=== PATIENT | male | born 1950 | race Caucasian/White ===

== ENCOUNTER 2018-01-12 08:15 | Emergency (ER) | payer MEDICARE, SELFPAY ==
[2018-01-12 08:16] VITALS: BP 153/82; PULSE 78; RESP 18; TEMP 36.7; O2SAT 99; BMI 31.0
--- NOTE | 2018-01-12 08:19 | ED.DCSUM_ITS ---
- ER Visit Summary Date of Service: 01/12/18 Chief Complaint: PEG tube complication History of Present Illness: The patient is a 67 M who is at [facility] recovering from a stroke. He states he had a PEG tube placed approximately 10 months ago. This came out during the night. Staff from [facility] placed a 18 Cymro Marie catheter into the stoma. He was sent here for replacement. During report it was not known what size PEG tube the patient has. Physical Examination: Afebrile vital signs are stable Gen: Well-nourished well-developed Head: Normocephalic atraumatic Eyes: Perrl EOMI ENT: TMs clear no rhinorrhea moist mucous membranes Neck: Supple no lymphadenopathy no JVD nontender CVS: Regular rate rhythm no murmurs normal S1-S2 Respiratory: No distress clear to auscultation bilaterally chest nontender Abdomen: Soft nontender nondistended normal bowel sounds no masses stoma is intact and free of complications. There is an [address] Cym[address] catheter in place. Back: Nontender Extremity: Nontender no edema Skin: Normal color no rash Neuro: alert orientated ?3 functional quadriplegia Psych: Normal affect normal mood Test Results: Gastrografin injection does not show any extravasation outside the gastrum. Emergency Department Course and Treatment: A 20 Cymro PEG tube was replaced after removing the Marie catheter. It was inflated with 6 mL's of sterile water. Patient tolerated procedure extremely well. Postprocedure imaging is adequate. He will be transferred back to senior care. Drain dressing was applied. PEG tube was secured with paper tape. Impression: 1. PEG tube replacement This note was generated with [employer] dictation software. It may contain incorrect words, spelling, and punctuation that were not noted in review of the chart prior to signing ED Disposition - Plan for ED Patient: Disposition: Home or Assisted Living Chief Complaint: Other, Pain/Inj Instructions: ED G Tube Replacement
--- NOTE | 2018-01-12 09:15 | RAD_ITS ---
STUDY: X-RAY - ABDOMEN/PELVIS REASON FOR EXAM: Male, 67 years old. PEG tube evaluation. TECHNIQUE: 60 cc of Gastrografin was injected into the PEG tube. COMPARISON: None. FINDINGS: The PEG tube is seen within the stomach. RAD/Abdomen Single View IMPRESSION: The PEG tube is seen within the stomach. Electronically Signed: Ajit Cruz MD at 10:19 EDT Tel [phone], Service support ,
== END 2018-01-12 09:53 | disposition home or self-care (01) ==
PROVIDERS: Emergency Provider Emergency Medicine
DX: Z43.1 Encounter for attention to gastrostomy (principal); E66.9 Obesity, unspecified; Z86.73 Personal history of transient ischemic attack (TIA), and cerebral infarction without residual deficits; Z87.891 Personal history of nicotine dependence; Z68.31 Body mass index [BMI] 31.0-31.9, adult; Z79.82 Long term (current) use of aspirin; Z79.899 Other long term (current) drug therapy
CPT/HCPCS: 43760; 74018; 99284

== ENCOUNTER 2018-07-27 07:43 | Emergency (ER) | payer MEDICARE, SELFPAY ==
[2018-07-27 07:44] VITALS: BP 131/53; PULSE 72; RESP 16; TEMP 36.4; O2SAT 99; BMI 30.4
--- NOTE | 2018-07-27 08:15 | ED.VISSUMM ---
- ER Visit Summary Date of Service: 07/27/18 Chief Complaint: [] Needs PEG tube replaced History of Present Illness: The patient is a 67 M [] usual state of stable health apparently the PEG tube fell out last night the nurses put in a Marie catheter immediately and he was sent in to have a new PEG tube put in place of the Marie catheter temporary, the patient has no complaints and per information staff obtained from [facility] [place] there is no other issues with the patient he has been doing well at [facility] in his stable state of health Physical Examination: [] He is resting comfortably in the bed he has a cough that is not unusual for him he denies any fever cough chest pain shortness of breath anything that is different he simply indicates needs his PEG tube replaced his blood pressure is 171/62, his lungs are rhonchorous his heart tones are regular the abdomen soft Marie catheter 18-gauge is in place and PEG tube site the abdomen soft and nontender upper lower extremity unremarkable he is moving his upper extremities has weakness to lower extremities that he states is not new for him, and again the [facility] staff informed our staff that he has been in his stable state of health We are contacting the [facility] to obtain information related to the PEG tube Confirmed the above with nursing center per staff, a 20 Iranian ASHER tube was placed without difficulty using standard sterile technique, the post insertion KUB with contrast per radiology shows the tube to be in appropriate position no extravasation all the above was discussed with from our staff via [facility] staff and to management and he will be returned to [facility] [place] continue his therapy Test Results: [] Emergency Department Course and Treatment: [] Treatment Plan: [] Disposition: [] Home stable Impression: [] PEG tube replacement This note was generated with [employer] dictation software. It may contain incorrect words, spelling, and punctuation that were not noted in review of the chart prior to signing ED Disposition - Plan for ED Patient: Chief Complaint: General Illness Referrals: Care Physician,No Primary [Primary Care Provider] -
--- NOTE | 2018-07-27 08:21 | ED.DCSUM_ITS ---
- ER Visit Summary Date of Service: 07/27/18 Chief Complaint: [] Needs PEG tube replaced History of Present Illness: The patient is a 67 M [] usual state of stable health apparently the PEG tube fell out last night the nurses put in a Marie catheter immediately and he was sent in to have a new PEG tube put in place of the Marie catheter temporary, the patient has no complaints and per information staff obtained from nursing [place] there is no other issues with the patient he has been doing well at [facility] in his stable state of health Physical Examination: [] He is resting comfortably in the bed he has a cough that is not unusual for him he denies any fever cough chest pain shortness of breath anything that is different he simply indicates needs his PEG tube replaced his blood pressure is 171/62, his lungs are rhonchorous his heart tones are regular the abdomen soft Marie catheter 18-gauge is in place and PEG tube site the abdomen soft and nontender upper lower extremity unremarkable he is moving his upper extremities has weakness to lower extremities that he states is not new for him, and again the care home staff informed our staff that he has been in his stable state of health We are contacting the care home to obtain information related to the PEG tube Confirmed the above with nursing center per staff, a 20 Vincentian ASHER tube was placed without difficulty using standard sterile technique, the post insertion KUB with contrast per radiology shows the tube to be in appropriate position no extravasation all the above was discussed with from our staff via care home staff and to management and he will be returned to [facility] [place] continue his t herapy Test Results: [] Emergency Department Course and Treatment: [] Treatment Plan: [] Disposition: [] Home stable Impression: [] PEG tube replacement This note was generated with [employer] dictation software. It may contain incorrect words, spelling, and punctuation that were not noted in review of the chart prior to signing ED Disposition - Plan for ED Patient: Chief Complaint: General Illness Referrals: Care Physician,No Primary [Primary Care Provider] -
[2018-07-27 09:01] VITALS: BP 121/66; PULSE 75; RESP 16; O2SAT 99
--- NOTE | 2018-07-27 09:11 | RAD_ITS ---
STUDY: X-RAY - ABDOMEN/PELVIS REASON FOR EXAM: Male, 67 years old. PEG tube placement. TECHNIQUE: Single AP view of the abdomen / pelvis. COMPARISON: Comparison is made with prior study dated January 12, 2018. FINDINGS: 60 cc of nonionic contrast was injected into the indwelling PEG tube. The tip of the PEG tube is in the region of the first portion of the duodenum. RAD/Abdomen Single View (Portable) IMPRESSION: The tip of the PEG tube is in the region of the first portion of the duodenum. Electronically Signed: Ajit Cruz MD at 9:27 EST Tel [phone], Service support ,
[2018-07-27 09:19] VITALS: BP 146/77; PULSE 79; RESP 16; O2SAT 98
--- NOTE | 2018-07-27 09:45 | ED.DEP ---
ED Disposition - Plan for ED Patient: Chief Complaint: General Illness Instructions: ED G Tube Replacement Referrals: Care Physician,No Primary [Primary Care Provider] -
--- NOTE | 2018-07-27 10:14 | ED.RN ---
20FR G-TUBE INSERTED BY DR FLOERS. DRESSING APPLIED. PLACEMENT VERIFIED.
--- OUTSIDE RECORDS SUMMARY | 2018-09-19 07:40 | XMS RPT_ITS ---
:1950 Author Organization [place] Care Team Providers Name Role Phone Cristobal Lee Attending Unavailable Primay Care Physicia, No Primary Care Unavailable Baron, Manuel Attending Unavailable Primay Care Physicia, No Primary Care Unavailable Tyrone Copeland Attending Unavailable Manuel Draper Attending Unavailable Primay Care Physicia, No Primary Care Unavailable Navin Carson Attending Unavailable Primay Care Physicia, No Primary Care Unavailable Nacho Thompson Attending Unavailable PROBLEMS PROBLEMS DATE TYPE CONDITION / CODE ATTENDING STATUS SOURCE 10/06/2017 Unknown Z43.1 - Encounter RosaCristobal Active [place] for attention to [facility] gastrostomy / Hospital Z43.1(ICD-10) Repository PROCEDURES PROCEDURES No Procedure Records FoundRESULTS RESULTS EMERGENCY DEPARTMENT Observed: 07/27/2018 Status: F Source: [place] SUMMARY 10:25 PM [facility] REPOSITORY [facility] Medical Records Department [address] [place] [address] Emergency Department Summary 07/27/182221 MR#: [id number] Acct: [id number] Name: YUMIKO LOPEZ Rep #: [id number] : 1950 67 From: Nacho Thompson MD PCP: Olamide Coughlin, No Primary Status: REG ER - ER Visit Summary Date of Service: 07/27/18 Chief Complaint: Concern for proper placement of feeding tube History of Present Illness: The patient is a 67 M sent to ER from jail facility because of concern for proper placement of feeding tube. Patient has no complaints. Physical Examination: Vital signs noted and blood pressure is elevated 143/74. Abdomen is soft nontender. G-tube appears to be in proper position. Bowel sounds are present normal. There is no erythema drainage around fistula site. Test Results: None Emergency Department Course and Treatment: 60 cc of normal saline was instilled into the stomach through the G-tube. 50 cc was easily aspirated. Treatment Plan: Return to jail facility and resume prior orders Disposition: Discharge to jail facility Impression: Verify placement of G-tube put This note was generated with Carnet de Mode dictation software. It may contain incorrect words, spelling, and punctuation that were not noted in review of the chart prior to signing ED Disposition - Plan for ED Patient: Disposition: Home or Assisted Living Chief Complaint: Wound Instructions: Gastrostomy Feeding Tube Care: [place] Referrals: Care Physician,No Primary [Primary Care Provider] - What to do if you have Problems For any increased pain, shortness of breath, bleeding, nausea or vomiting, chest pain, or any unexpected problems, contact your Primary Care Provider. Call [facility] Registry ([phone]) or report to the closest Emergency Room. Call 911 if necessary. 07/27/182224 <Electronically signed by Nacho Thompson MD> Date Nacho Thompson MD Cosigner Signature (If Indicated): Date CC: No Primary Care Physician EMERGENCY DEPARTMENT Observed: 07/27/2018 Status: F Source: [place] SUMMARY 4:21 PM [facility] REPOSITORY [facility] Medical Records Department [address] [place] [address] Emergency Department Summary 07/27/18 0815 MR#: [id number] Acct: [id number] Name: YUMIKO LOPEZ Rep #: [id number] : 1950 67 From: Navin Carson MD PCP: Care Physician, No Primary Status: DEP ER - ER Visit Summary Date of Service: 07/27/18 Chief Complaint: [] Needs PEG tube replaced History of Present Illness: The patient is a 67 M [] usual state of stable health apparently the PEG tube fell out last night the nurses put in a Marie catheter immediately and he was sent in to have a new PEG tube put in place of the Marie catheter temporary, the patient has no complaints and per information staff obtained from nursing center there is no other issues with the patient he has been doing well at nursing center in his stable state of health Physical Examination: [] He is resting comfortably in the bed he has a cough that is not unusual for him he denies any fever cough chest pain shortness of breath anything that is different he simply indicates needs his PEG tube replaced his blood pressure is 171/62, his lungs are rhonchorous his heart tones are regular the abdomen soft Marie catheter 18-gauge is in place and PEG tube site the abdomen soft and nontender upper lower extremity unremarkable he is moving his upper extremities has weakness to lower extremities that he states is not new for him, and again the halfway staff informed our staff that he has been in his stable state of health We are contacting the halfway to obtain information related to the PEG tube Confirmed the above with nursing center per staff, a 20 Bhutanese ASHER tube was placed without difficulty using standard sterile technique, the post insertion KUB with contrast per radiology shows the tube to be in appropriate position no extravasation all the above was discussed with from our staff via halfway staff and to management and he will be returned to nursing center continue his therapy Test Results: [] Emergency Department Course and Treatment: [] Treatment Plan: [] Disposition: [] Home stable Impression: [] PEG tube replacement This note was generated with Eurekaation software. It may contain incorrect words, spelling, and punctuation that were not noted in review of the chart prior to signing ED Disposition - Plan for ED Patient: Chief Complaint: General Illness Referrals: Care Physician,No Primary [Primary Care Provider] - What to do if you have Problems For any increased pain, shortness of breath, bleeding, nausea or vomiting, chest pain, or any unexpected problems, contact your Primary Care Provider. Call [facility] Registry ([phone]) or report to the closest Emergency Room. Call 911 if necessary. 07/27/18 1621 <Electronically signed by Navin Carson MD> Date Navin Carson MD Cosigner Signature (If Indicated): Date CC: No Primary Care Physician DISCHARGE INSTRUCTION Observed: 07/27/2018 Status: F Source: [place] 9:46 AM [facility] REPOSITORY [facility] Medical Records Department [address] [place] [address] Discharge Instruction 07/27/18 0945 MR#: [id number] Acct: [id number] Name: YUMIKO LOPEZ Rep #: [id number] : 1950 67 From: Navin Carson MD PCP: Care Physician, No Primary Status: REG ER ED Disposition - Plan for ED Patient: Chief Complaint: General Illness Instructions: ED G Tube Replacement Referrals: Care Physician,No Primary [Primary Care Provider] - What to do if you have Problems For any increased pain, shortness of breath, bleeding, nausea or vomiting, chest pain, or any unexpected problems, contact your Primary Care Provider. Call [facility] ([phone]) or report to the closest Emergency Room. Call 911 if necessary. 07/27/18 0946 <Electronically signed by Navin Carson MD> Date Navin Carson MD Cosigner Signature (If Indicated): Date CC: No Primary Care Physician ABDOMEN SINGLE VIEW Observed: 07/27/2018 Status: F Source: [place] (PORTABLE) 8:55 AM [facility] REPOSITORY [facility] Imaging Services [address] [place] [address] Abdomen Single View (Portable) MR#: [id number] Acct: [id number] Name: YUMIKO LOPEZ Rep #: [id number] : 1950 67 From: Ajit Cruz MD PCP: [place]ma[place] Physician, No Primary Status: REG ER Study: Abdomen Single View (Portable) Date of Exam: 07/27/18 Exam# [id number] Ordering Dr: aNvin Carson MD STUDY: X-RAY - ABDOMEN/PELVIS REASON FOR EXAM: Male, 67 years old. PEG tube placement. TECHNIQUE: Single AP view of the abdomen / pelvis. COMPARISON: Comparison is made with prior study dated January 12, 2018. FINDINGS: 60 cc of nonionic contrast was injected into the indwelling PEG tube. The tip of the PEG tube is in the region of the first portion of the duodenum. RAD/Abdomen Single View (Portable) IMPRESSION: The tip of the PEG tube is in the region of the first portion of the duodenum. Electronically Signed: Ajit Cruz MD at 9:27 EST Tel [phone], Service support , CC: MD Cristiana Carson; No Primary Care Physician Scout Leaser: Signed AMMONIA Collected: 02/24/2018 Status: F Source: [place] 3:28 AM [facility] REPOSITORY TYPE CODE TESTS RESULT OUT OF REFERENCE UNITS RANGE LAB L503.5510 11-32 umol/L High AMMONIA 49.0 Performed By: #### L503.5510 #### [facility] [address] [facility] [place], [address] EMERGENCY DEPARTMENT Observed: 01/14/2018 Status: F Source: [place] SUMMARY 8:27 AM [facility] REPOSITORY [facility] Medical Records Department [address] [place] [address] Emergency Department Summary 01/12/18 0817 MR#: [id number] Acct: [id number] Name: YUMIKO LOPEZ Rep #: [id number] : 1950 67 From: Tyrone Copeland DO PCP: Care Physician, No Primary Status: DEP ER - ER Visit Summary Date of Service: 01/12/18 Chief Complaint: PEG tube complication History of Present Illness: The patient is a 67 M who is at [facility] recovering from a stroke. He states he had a PEG tube placed approximately 10 months ago. This came out during the night. Staff from [facility] placed a 18 Bhutanese Marie catheter into the stoma. He was sent here for replacement. During report it was not known what size PEG tube the patient has. Physical Examination: Afebrile vital signs are stable Gen: Well-nourished well-developed Head: Normocephalic atraumatic Eyes: Perrl EOMI ENT: TMs clear no rhinorrhea moist mucous membranes Neck: Supple no lymphadenopathy no JVD nontender CVS: Regular rate rhythm no murmurs normal S1-S2 Respiratory: No distress clear to auscultation bilaterally chest nontender Abdomen: Soft nontender nondistended normal bowel sounds no masses stoma is intact and free of complications. There is an 18 Bhut[place] Marie catheter in place. Back: Nontender Extremity: Nontender no edema Skin: Normal color no rash Neuro: alert orientated 3 functional quadriplegia Psych: Normal affect normal mood Test Results: Gastrografin injection does not show any extravasation outside the gastrum. Emergency Department Course and Treatment: A 20 Bhutanese PEG tube was replaced after removing the Marie catheter. It was inflated with 6 mL's of sterile water. Patient tolerated procedure extremely well. Postprocedure imaging is adequate. He will be transferred back to halfway. Drain dressing was applied. PEG tube was secured with paper tape. Impression: 1. PEG tube replacement This note was generated with Carnet de Mode dictation software. It may contain incorrect words, spelling, and punctuation that were not noted in review of the chart prior to signing ED Disposition - Plan for ED Patient: Disposition: Home or Assisted Living Chief Complaint: Other, Pain/Inj Instructions: ED G Tube Replacement What to do if you have Problems For any increased pain, shortness of breath, bleeding, nausea or vomiting, chest pain, or any unexpected problems, contact your Primary Care Provider. Call [facility] Registry ([phone]) or report to the closest Emergency Room. Call 911 if necessary. 01/14/18 0858 <Electronically signed by Tyrone Copeland DO> Date Tyrone Copeland DO Cosigner Signature (If Indicated): Date CC: No Primary Care Physician ABDOMEN SINGLE VIEW Observed: 01/12/2018 Status: F Source: [place] 8:17 AM [facility] REPOSITORY [facility] Imaging Services [address] [place] [address] Abdomen Single View MR#: [id number] Acct: [id number] Name: YUMIKO LOPEZ Rep #: [id number] : 1950 M 67 From: Ajit Cruz MD PCP: Care Physician, No Primary Status: DEP ER Study: Abdomen Single View Date of Exam: 01/12/18 Exam# [id number] Ordering Dr: Tyrone Copeland DO STUDY: X-RAY - ABDOMEN/PELVIS REASON FOR EXAM: Male, 67 years old. PEG tube evaluation. TECHNIQUE: 60 cc of Gastrografin was injected into the PEG tube. COMPARISON: None. FINDINGS: The PEG tube is seen within the stomach. RAD/Abdomen Single View IMPRESSION: The PEG tube is seen within the stomach. Electronically Signed: Ajit Cruz MD at 10:19 EDT Tel [phone], Service support , CC: No Primary Care Physician; Tyrone Copeland DO Scout Leaser: Signed AMMONIA Collected: 08/26/2017 Status: F Source: [place] 3:12 AM [facility] REPOSITORY TYPE CODE TESTS RESULT OUT OF REFERENCE UNITS RANGE LAB L503.5510 11-32 umol/L High AMMONIA 52.0 Performed By: #### L503.5510 #### [facility] [address] [place], [address] EMERGENCY DEPARTMENT Observed: 08/25/2017 Status: F Source: [place] SUMMARY 7:28 AM [facility] REPOSITORY [facility] Medical Records Department [address] [place] [address] Emergency Department Summary 08/25/1716 MR#: [id number] Acct: [id number] Name: YUMIKO LOPEZ Rep #: [id number] : 1950 66 From: Cristobal Lee MD PCP: Care Physician, No Primary Status: REG ER - ER Visit Summary Date of Service: 08/25/17 Chief Complaint: Pulled PEG tube History of Present Illness: The patient is a 66 M with a history of dementia peripheral vascular disease stroke alcoholic liver cirrhosis whose PEG tube was pulled out. This occurred about 3 hours prior to presentation here to the emergency department. Staff at his facility did place a Marie catheter. Patient states the PEG was established about 2 months ago. He otherwise has no complaints. Physical Examination: Afebrile vitals are stable Heart regular rate and rhythm Lungs are clear Abdomen soft nontender, Marie catheter noted at site of gastrostomy Alert Test Results: KUB shows contrast within the stomach without extravasation on my review. Emergency Department Course and Treatment: Marie was removed and a new PEG tube was easily placed without apparent complication. Gastric contents draining from the tube. Tube placement confirmed with Gastrografin KUB. Patient discharged. Treatment Plan: [] Disposition: Discharge Impression: PEG tube replacement This note was generated with Carnet de Mode dictation software. It may contain incorrect words, spelling, and punctuation that were not noted in review of the chart prior to signing ED Disposition - Plan for ED Patient: Chief Complaint: Other, Pain/Inj Instructions: ED G Tube Replacement Referrals: Care Physician,No Primary [Primary Care Provider] - What to do if you have Problems For any increased pain, shortness of breath, bleeding, nausea or vomiting, chest pain, or any unexpected problems, contact your Primary Care Provider. Call [facility] ([phone]) or report to the closest Emergency Room. Call 911 if necessary. 08/25/1728 <Electronically signed by Cristobal Lee MD> Date Cristobal Lee MD Cosigner Signature (If Indicated): Date CC: No Primary Care Physician DISCHARGE INSTRUCTION Observed: 08/25/2017 Status: F Source: [place] 7:[address] [facility] Medical Records Department [address] [place] [address] Discharge Instruction 08/25/17717 MR#: [id number] Acct: [id number] Name: YUMIKO LOPEZ Rep #: [id number] : 1950 66 From: Cristobal Lee MD PCP: Care Physician, No Primary Status: REG ER ED Disposition - Plan for ED Patient: Chief Complaint: Other, Pain/Inj Instructions: ED G Tube Replacement Referrals: Care Physician,No Primary [Primary Care Provider] - What to do if you have Problems For any increased pain, shortness of breath, bleeding, nausea or vomiting, chest pain, or any unexpected problems, contact your Primary Care Provider. Call [facility] ([phone]) or report to the closest Emergency Room. Call 911 if necessary. 08/25/17718 <Electronically signed by Cristobal Lee MD> Date Cristobal Lee MD Cosigner Signature (If Indicated): Date CC: No Primary Care Physician ABDOMEN SINGLE VIEW Observed: 08/25/2017 Status: F Source: [place] 7:[address] [facility] Imaging Services [address] [place] [address] Abdomen Single View MR#: [id number] Acct: [id number] Name: YUMIKO LOPEZ Rep #: [id number] : 1950 M 66 From: Andrea Rosas MD PCP: Care Physician, No Primary Status: REG ER Study: Abdomen Single View Date of Exam: 08/25/17 Exam# [id number] Ordering Dr: Cristobal Lee MD STUDY: X-RAY - ABDOMEN/PELVIS REASON FOR EXAM: Male, 66 years old. PEG TUBE PLACEMENT PT PULLED TUBE OUT TECHNIQUE: Single AP view of the abdomen / pelvis. COMPARISON: None. FINDINGS: Normal visualized lung bases. Contrast seen in the stomach. There is no there is no evidence of contrast leak. The PEG tube tip appears in relatively low position. A CT scan may be warranted to ensure correct positioning. There is an unremarkable bowel gas pattern. There is no demonstrated free abdominal air. The visualized liver, spleen and kidneys are grossly normal in size and morphology. Normal soft tissue structures. Normal visualized osseous structures. RAD/Abdomen Single View IMPRESSION: Contrast seen in the stomach. There is no there is no evidence of contrast leak. The PEG tube appears in relatively low position. A CT scan may be warranted to ensure correct positioning. Electronically Signed: Andrea Rosas MD at 8:03 EST Tel , Service support , CC: No Primary Care Physician; Cristobal Lee MD Scout Leaser: Signed ALLERGIES ALLERGIES DATE TYPE / CODE NAME / CODE REACTION SEVERITY SOURCE 07/27/2018 Drug codeine/F0060 Itching Unknown [place] [facility]ergy[facility][id number][facility] 07/27/2018 Miscellaneous ARICEPT Unknown Unknown [place] Allergy/[id number](S [facility] NOMED CT) Hospital Repository ENCOUNTERS ENCOUNTERS ADMIT/DISCHARGE ACCOUNT ADMITTING ENCOUNTER LOCATION SOURCE NUMBER CLASS 07/27/2018/ [id number] Emergency [place] [facility] ing:ED Repository 07/27/2018/ [id number] Emergency [place] [facility] ing:ED Repository 02/24/2018 [id number] Amb[facility] [place] [facility] ing:OLS.AHA Repository 01/12/2018/ [id number] Emergency [place] [facility] ing:ED Repository 08/26/2017 [id number] [facility] [place] [facility] ing:OLS.AHA Repository 08/25/2017/ [id number] Emergency [place] [facility] ing:ED Repository PAYERS PAYERS ENCOUNTER GUARANTOR PAYER SUBSCRIBER SOURCE 07/27/2018 YUMIKO D Primary YUMIKO D [place] [facility] Insurance:MYCARE CRSC MCKEEDOB: Community [id number] *IN [facility] [id number], Number: Repository [place] [address]Azg: 330 [id number] [phone] () Date:[id number] CLAIMS DEPTPO [address] [address]GG: 07/27/2018 Secondary NOT GIVENUNK [place] Insurance:SELF PAY [facility] Number: Effective Repository Date:2018-07-27 07/27/2018 YUMIKO D Primary YUMIKO D [place] [facility] Insurance:MYCARE CRSC MCKEEDOB: Community [id number] *IN [facility] [id number], Number: Repository [place] [address]Qmy: 330 [id number] [phone] (HP) Date:[id number] CLAIMS [address] [address]ZO: 07/27/2018 Secondary NOT GIVENUNK [place] Insurance:SELF PAY [facility] Number: Effective Repository Date:2018-07-27 02/24/2018 YUMIKO D Primary NOT GIVENUNK [place] [facility] Insurance:SELF PAY [facility] [id number] [facility], Number: Effective Repository [place] [address]Ohe: (330) Date:2018-02-24 [phone] (HP) 01/12/2018 YUMIKO D Primary YUMIKO D [place] [facility] Insurance:MYCARE CRSC MCKEEDOB: Community [id number] *IN [facility] [id number], Number: Repository [place] [address]Lim: 330 [id number] [phone] (HP) Date:[id number] CLAIMS DE[address]PO [address] [place] [address]GZ: 01/12/2018 Secondary NOT GIVENUNK [place] Insurance:SELF PAY [facility] Number: Effective Repository Date:2018-01-12 08/26/2017 YUMIKO D Primary NOT GIVENUNK [place] [facility] Insurance:SELF PAY Community [id number] [facility], Number: Effective Repository [place] [address]Xci: (330) Date:2017-08-26 [phone] (HP) 08/25/2017 YUMIKO D Primary YUMIKO D [place] [facility] Insurance:MYCARE CRSC MCKEEDOB: Community [id number] *IN [facility] [id number], Number: Repository [place] [address]Wlo: (330 [id number] [phone] (HP) Date:[id number] [place]S [address] [address]FB: 08/25/2017 Secondary NOT GIVENUNK [place] Insurance:SELF PAY [facility] Number: Effective Repository Date:2017-08-25
== END 2018-07-27 10:13 ==
PROVIDERS: Emergency Provider Emergency Medicine
DX: Z43.1 Encounter for attention to gastrostomy (principal)
CPT/HCPCS: 43246; 74018; 99284

== ENCOUNTER 2018-07-27 20:48 | Emergency (ER) | payer MEDICARE, SELFPAY ==
[2018-07-27 07:44] VITALS: BMI 30.4
[2018-07-27 20:52] VITALS: BP 143/74; PULSE 88; RESP 18; TEMP 37; O2SAT 100; BMI 30.4
--- NOTE | 2018-07-27 22:22 | ED.VISSUMM ---
- ER Visit Summary Date of Service: 07/27/18 Chief Complaint: Concern for proper placement of feeding tube History of Present Illness: The patient is a 67 M sent to ER from retirement facility because of concern for proper placement of feeding tube. Patient has no complaints. Physical Examination: Vital signs noted and blood pressure is elevated 143/74. Abdomen is soft nontender. G-tube appears to be in proper position. Bowel sounds are present normal. There is no erythema drainage around fistula site. Test Results: None Emergency Department Course and Treatment: 60 cc of normal saline was instilled into the stomach through the G-tube. 50 cc was easily aspirated. Treatment Plan: Return to retirement facility and resume prior orders Disposition: Discharge to retirement facility Impression: Verify placement of G-tube put This note was generated with [employer] dictation software. It may contain incorrect words, spelling, and punctuation that were not noted in review of the chart prior to signing ED Disposition - Plan for ED Patient: Disposition: Home or Assisted Living Chief Complaint: Wound Instructions: Gastrostomy Feeding Tube Care: [place] Referrals: Care Physician,No Primary [Primary Care Provider] -
--- NOTE | 2018-07-27 22:25 | ED.DCSUM_ITS ---
- ER Visit Summary Date of Service: 07/27/18 Chief Complaint: Concern for proper placement of feeding tube History of Present Illness: The patient is a 67 M sent to ER from residential facility because of concern for proper placement of feeding tube. Patient has no complaints. Physical Examination: Vital signs noted and blood pressure is elevated 143/74. Abdomen is soft nontender. G-tube appears to be in proper position. Bowel sounds are present normal. There is no erythema drainage around fistula site. Test Results: None Emergency Department Course and Treatment: 60 cc of normal saline was instilled into the stomach through the G-tube. 50 cc was easily aspirated. Treatment Plan: Return to residential facility and resume prior orders Disposition: Discharge to residential facility Impression: Verify placement of G-tube put This note was generated with [employer] dictation software. It may contain incorrect words, spelling, and punctuation that were not noted in review of the chart prior to signing ED Disposition - Plan for ED Patient: Disposition: Home or Assisted Living Chief Complaint: Wound Instructions: Gastrostomy Feeding Tube Care: [place] Referrals: Care Physician,No Primary [Primary Care Provider] -
[2018-07-27 22:34] VITALS: BP 119/64; PULSE 80; RESP 18; O2SAT 100
== END 2018-07-27 22:46 | disposition skilled nursing facility (03) ==
PROVIDERS: Emergency Provider Emergency Medicine
DX: Z43.1 Encounter for attention to gastrostomy (principal); E66.9 Obesity, unspecified
CPT/HCPCS: 74018; 99284

== ENCOUNTER 2019-01-08 09:55 | Emergency (ER) | payer MEDICARE, SELFPAY ==
[2019-01-08 09:57] VITALS: BP 114/57; PULSE 92; RESP 18; TEMP 36.7; O2SAT 95; BMI 28.7
--- NOTE | 2019-01-08 10:25 | ED.VIS.GEN ---
History of Present Illness Chief Complaint: General Illness Informant: Patient, [employer], SNF Onset: - - Uncertain Context: Sudden Onset Timing: Continuous Quality: Patient reportedly pulled PEG tube out Location: Abdomen Current Severity: - - Significant Maximum Severity: - - Significant Worsened by: Duration longer than reported with closure of tract Relieved by: Nothing Associated Symptoms: No associated symptoms Narrative: Patient is an elderly male with multiple medical problems from nursing facility who reportedly pulled out his feeding tube. He has a 20 [place] ASHER tube. Patient had sniffing amount of copious gastric contents coming from tract. Once this was cleaned it was determined that the tract may be minimally open. Attempt to pass a 20 [place] ASHER tube was unsuccessful. Prior similar symptoms: No Recent Illness/Hospitalization: No - Past Medical History (1) Bilateral leg weakness Status: Acute (2) Lumbar radiculopathy, chronic Status: Acute (3) Pneumonia Status: Acute (4) Degenerative lumbar spinal stenosis Status: Chronic (5) Stroke right-sided weakness Status: Chronic (6) Urge urinary incontinence Status: Chronic Past Medical History - Allergies and Home Meds Allergies/Adverse Reactions: Allergies codeine Allergy (Verified 07/27/18 21:04) Itching ARICEPT Allergy (Uncoded 07/27/18 07:50) Unknown Primary Care Physician: Care Physician,No Primary [Primary Care Provider] - Prior records reviewed: Yes - Paperwork from nursing facilities. He has more problems than listed on Med Surgical History: - - reports some type of surgery for swallowing Lives: Intermediate Smoking Status: Former smoker Alcohol: None Drugs: None - Family History Paternal Family History: Reports: No pertinent history Maternal Family History: Reports: - - mother with stroke Review of Systems General: Reports: Malaise. Denies: Chills, Fever, Subjective, Sweats Eyes: Denies: Visual changes - bilaterally, Blurred Vision - bilaterally ENT: Denies: Bilateral ear pain, Rhinorrhea, Sore throat Cardiovascular: Denies: Chest pain, Palpitations Respiratory: Reports: Dyspnea, Cough, - - Respiratory symptoms are chronic. Denies: Sputum Gastrointestinal: Denies: Abdominal pain, Nausea, Vomiting, Diarrhea, Constipation, Melena, Hematochezia, -, - Musculoskeletal: Denies: Myalgias, Arthralgias, Back pain Neurological: Reports: Weakness. Denies: Headache Psych: Reports: Depression Physical Exam Vital Signs/Narrative: Vital Signs Temp Pulse Resp BP Pulse Ox 01/08/19 09:57 98.0 F 92 18 114/57 L 95 Inital Vital Signs reviewed: Yes Eyes: Perrl, EOMI. Negative for: Pale conjunctiva, Scleral icterus, - ENT: Moist mucous membranes, No rhinorrhea Neck: Supple, Nontender, No lymphadenopathy, No JVD, - Cardiovascular: Regular rate, Regular rhythm, No murmurs, Normal S1, Normal S2 Respiratory: No distress, Chest nontender, Rales Abdomen: Soft, Nontender, Nondistended, Normal bowel sounds, No masses Skin: Normal color, No rash Neurological: Alert, Oriented x3, Cranial nerves II-XII grossly intact Psychological: Depressed Diagnostic/Tx/Re-eval - Medical Decision Making Attempt to place ASHER tube was unsuccessful. The track has essentially closed. Urethral sounds were ordered from OR to dilate opening and attempt to place ASHER tube. Procedures Procedure(s): Placement of percutaneous enterogastric feeding tube. Attempt to place 20 [place] ASHER tube was unsuccessful. Urethral sounds were obtained from the OR. Patient was dilated to 24. The 20 ASHER tube was easily placed without difficulty. Gastric contents was aspirated from the feeding tube. ED Disposition - Plan for ED Patient: Disposition: Home or Assisted Living Diagnosis: PEG (percutaneous endoscopic gastrostomy) adjustment/replacement/removal Instructions: ED G Tube Replacement Referrals: Care Physician,No Primary [Primary Care Provider] -
--- NOTE | 2019-01-08 11:08 | ED.RN ---
REPORT CALLED BACK TO [facility]UENT[facility], PT AWAITING RIDE.
[2019-01-08 11:47] VITALS: BP 110/62; PULSE 75; RESP 17
--- NOTE | 2019-01-08 11:47 | ED.RN ---
REPORT GIVEN TO [facility], PATIENT STATUS UNCHANGED.
== END 2019-01-08 11:48 | disposition home or self-care (01) ==
PROVIDERS: Emergency Provider Emergency Medicine
DX: Z43.1 Encounter for attention to gastrostomy (principal); I69.351 Hemiplegia and hemiparesis following cerebral infarction affecting right dominant side; Z79.899 Other long term (current) drug therapy; Z79.82 Long term (current) use of aspirin; Z87.891 Personal history of nicotine dependence
CPT/HCPCS: 43762; 99284